=== PATIENT | male | born 1965 | race Caucasian/White ===

== ENCOUNTER → 2017-06-25 | Outpatient (CLI) | payer OTHER ==
--- NOTE | 2017-06-26 09:09 | RADIOLOGY REPORT (SQ) ---
EXAM DESCRIPTION: MRI LT UPPER EXTREMITY COMBO COMPLETED DATE/TIME: 06/25/2017 8:13 pm REASON FOR STUDY: Pain in left shoulder M25.512 PAIN IN LEFT SHOULDER COMPARISON: None. TECHNIQUE: Multiplanar fat and fluid sensitive sequences precontrast including T1, T2 fat saturated or STIR. Post contrast T1 fat saturated sequences after IV gadolinium administration. CONTRAST TYPE AND DOSE: 15 mL Multihance. RENAL FUNCTION: None required. The patient is less than 50 years old. LIMITATIONS: No skin marker placed in the area of pain. Fat saturation artifact. No plain film for correlation. FINDINGS: No fracture identified. There is a rim of signal following normal marrow in the anterior cortex just proximal to midshaft. Cortical thickness is relatively symmetric. This could represent healing occult fracture or anatomic variant. Soft tissues are normal. IMPRESSION: Remote fracture or anatomic variant proximal humeral shaft. Correlate with plain films. No evidence of aggressive bone lesion. TECHNICAL DOCUMENTATION: JOB ID: [id number] [employer]- All Rights Reserved
== END ==
LOC: RAD 18:38
PROVIDERS: ATTEND Orthopaedic Surgery
DX: M25.512 Pain in left shoulder (principal)
CPT/HCPCS: 73220; A9577

== ENCOUNTER → 2017-07-31 | Outpatient (CLI) | payer OTHER ==
--- NOTE | 2017-08-01 12:17 | RADIOLOGY REPORT (SQ) ---
EXAM DESCRIPTION: NM 3 PHASE BONE SCAN COMPLETED DATE/TIME: 07/31/2017 3:02 pm REASON FOR STUDY: LEFT SHOULDER PAIN (M25.512) M25.512 PAIN IN LEFT SHOULDER COMPARISON: Plain films 06/21/2017 from [facility] MRI left upper extremity 06/25/2017 RADIONUCLIDE AND DOSE: 20.7 millicuries Tc99m MDP. The route of agent administration: Intravenous. ADDITIONAL DRUGS AND DOSES: None. TECHNIQUE: Following injection of the radiopharmaceutical, serial blood flow images acquired. Equil ibrium blood pool images then acquired. Routine delayed images at 3 hours acquired of the areas of c linical concern with additional focused images as needed. AREA OF INTEREST: Proximal left humeral diaphysis LIMITATIONS: None. FINDINGS: VASCULAR FLOW IMAGES: No asymmetry or focal areas of hyperemia. BLOOD POOL IMAGES: No asymmetry or focal areas of soft-tissue hyper-perfusion. BONES: Normal visualization without areas of photopenia or increased bony uptake of radiopharmaceutic al. SPECIFICALLY, NO INCREASED UPTAKE ALONG THE LEFT PROXIMAL HUMERAL DIAPHYSIS IS PRESENT. OTHER: Outside plain films and MRI were reviewed. The area in question on the left proximal humeral diaphysis is at the distal insertion of the deltoid muscle. Findings on plain film and MRI may repr esent a benign "tug" lesion at the muscle insertion. Recommend correlation with right humerus and sh oulder plain films to see if similar findings are present in the right proximal humeral diaphysis. IMPRESSION: NORMAL 3 PHASE BONE SCAN OF THE LEFT HUMERUS. COMMENT: Quality measure 147: Current bone scan is compared with any available plain radiographs, p rior bone scans, and CT/MRI. TECHNICAL DOCUMENTATION: JOB ID: [id number] [employer]- All Rights Reserved
== END ==
LOC: RAD 10:54
PROVIDERS: ATTEND Orthopaedic Surgery
DX: M25.512 Pain in left shoulder (principal)
CPT/HCPCS: 78315; A9561; Q9969